=== PATIENT | female | born 1970 | race Caucasian/White ===

== ENCOUNTER 2016-09-11 21:00 | Inpatient (IN) | payer OTHER ==
[~2016-09-11] VITALS: Ht 157.5 cm; Wt 59.9 kg
[~2016-09-11 21:00] MED LIST: ADVAIR HFA120 INHAL1 IH; ADVIL200 M3 PO; ADVIL200 MG PO; AMBIEN10 MG PO; AMBIEN5 MG PO; ASCORBIC ACID500 M3 PO; ASMANEX TW200 MICROG; ASPIR-LOW81 MG PO; ATIVAN0.5 MG PO; AUGMENTIN875 MG PO; BACTRIM,SEPT1 TABLET PO; BENADRYL ALLERG25 MG PO; CIPRO500 MG PO; CIPROFLOXACIN500 M1 PO; COMBIVENT RESPIM4 GM IH; ENDOCET 5-3251 EACH PO; FENTANYL1 EAC1 TD; FLAGYL500 MG PO; FLEXERIL10 MG PO; HYCODAN SYRUP480 ML PO; HYDROCODON-ACE1 EAC7 PO; INDOCIN50 MG PO; LEVAQUIN500 MG PO; MIRALAX17 GM PO; MORPHINE SULFAT15 M1 PO; NICOTINE PATCH1 EAC2 TD; NO MEDS; NOHOMEMEDS; NORCO 7.5/321 TABLET PO; OMEPRAZOLE20 MG PO; ONE DAILY FOR1 EAC1 PO; OXYCODONE HCL5 MG PO; PERCOCET 5/31 TABLET PO; PHILLIPS'400 MG/5 M PO; PREDNISONE10 MG PO; PROZAC10 MG PO; TUMS500 MG PO; TYLENOL REGULA325 MG PO; VENTOLIN HFA18 GM IH; VENTOLIN17 GM; VICODIN,LORT1 TABLET PO; ZITHROMAX Z-PA250 MG PO
[2016-09-11 22:23] LABS: HEMATOCRIT 37.2 % (36.0-46.0); MCH 31.4 PG (29.0-34.0); MCHC 34.4 G/DL (30.0-36.0); MCV 91.4 FL (83-99); MEAN PLAT.VOLUME 8.2 uM^3 (9.5-12.4); PLATELET COUNT 322 K/uL (156-360); RBC DIS.WIDTH-CV 12.4 % (11.8-14.6); RBC DIS.WIDTH-SD 40.8 % (39-53); RED BLOOD COUNT 4.07 M/uL (3.80-5.20); WHITE BLOOD COUNT 9.5 K/uL (4.1-10.2)
[2016-09-11 22:33] LABS: CHLORIDE 106 mEq/L (99-109); POTASSIUM 3.7 mEq/L (3.7-5.4); SODIUM 140 mEq/L (136-147)
[2016-09-11 22:35] LABS: GLUCOSE 102 mg/dL (70-99)
[2016-09-11 22:36] LABS: ANION GAP 7 MEQ/L (2-14)
[2016-09-11 22:38] LABS: SERUM ETHYL ALCOHOL < 10 mg/dL
[2016-09-11 22:39] LABS: GFR ESTIMATE (CALCULATED) > 59 mL/min/
[2016-09-11 22:40] LABS: UREA NITROGEN (BUN) 9 mg/dL (9-23)
[2016-09-11 22:42] LABS: SALICYLATE < 5.0 MG/DL (15-30)
[2016-09-11 22:48] LABS: QUANTITATIVE HCG < 4.0 MIU/ML
[2016-09-12 05:47] LABS: ADD MIUA? YES; BILIRUBIN NEGATIVE; BLOOD MODERATE; COLOR YELLOW ((YELLOW)); GLUCOSE (STRIP) NEGATIVE; KETONES NEGATIVE; LEUKOCYTES NEGATIVE; NITRITE NEGATIVE; PROTEIN (STRIP) NEGATIVE; UROBILINOGEN 0.2 MG/DL (0.2-1.0)
[2016-09-12 05:52] LABS: BACTERIA NONE SEEN /HPF; EPITHELIAL CELLS RARE /HPF; MUCUS NONE SEEN /LPF; RED BLOOD CELLS 0-5 /HPF (0-5); UCUL ADDED? NO; WHITE BLOOD CELLS 0-5 /HPF (0-5)
[2016-09-12 05:55] LABS: AMPHETAMINE NEGATIVE (500 ng/mL); BARBITURATES NEGATIVE (200 ng/mL); BENZODIAZEPINES PRESUMPTIVE POSITIVE (150 ng/mL); COCAINE NEGATIVE (150 ng/mL); INTERNAL CONTROLS VALID? YES; METHADONE NEGATIVE (200 ng/mL); METHAMPHETAMINE NEGATIVE (500 ng/mL); OPIATES (MORPHINE) PRESUMPTIVE POSITIVE (100 ng/mL); OXYCODONE NEGATIVE (100 ng/mL); PHENCYCLIDINE NEGATIVE (25 ng/mL); PROPOXYPHENE NEGATIVE (300 ng/mL); THC CANNABINOIDS NEGATIVE (50 ng/mL); TRICYCLIC ANTIDEPRESSANTS NEGATIVE (300 ng/mL)
[2016-09-12 05:56] LABS: ADD MEDTOX COMMENT Y
[2016-09-12 06:56] LABS: BENZODIAZEPINES QUANT VALUE 0 NG/ML; BENZODIAZEPINES, URINE SCREEN Negative (200 ng/mL)
[2016-09-12] MEDS ORDERED: SYMBICORT60 INHALAT IH (07:49)
[2016-09-12] MEDS ORDERED: OMEPRAZOLE20 MG PO (07:49)
[2016-09-12] MEDS ORDERED: NORCO 5/3251 TABLET PO (07:50)
[2016-09-12 08:26] VITALS: BP 127/64
[2016-09-12 10:06] VITALS: BP 127/64
== END 2016-09-12 13:02 | disposition home or self-care (01) | DRG 885 ==
LOC: EME 21:00 → EDOF 09-12 03:34 → 1WEST 09-12 08:00
PROVIDERS: Emergency Medicine
DX: F33.9 Major depressive disorder, recurrent, unspecified (principal); T40.2X2A Poisoning by other opioids, intentional self-harm, initial encounter; F11.20 Opioid dependence, uncomplicated; F10.20 Alcohol dependence, uncomplicated
CPT/HCPCS: 80048; 81003; 84702; 84999; 85027; 90837; 99281; 99285; G0480; J2310

== ENCOUNTER 2017-04-13 07:11 | Inpatient (IN) | payer OTHER ==
[~2017-04-13] VITALS: Ht 157.5 cm; Wt 60.6 kg
[~2017-04-13 07:11] MED LIST changes: +NORCO 5/3251 TABLET PO; +SYMBICORT60 INHALAT IH
[2017-04-13 07:32] LABS: BASOPHIL COUNT 0.2 K/uL (0-0.1); EOSINOPHIL (%) 7.1 % (0-5); EOSINOPHIL COUNT 1.4 K/uL (0-0.3); HEMATOCRIT 47.6 % (36.0-46.0); IMMATURE GRANULOCYTE (%) 0.4 % (0.0-0.7); IMMATURE GRANULOCYTE COUNT 0.1 K/uL; INSTRUMENT ABS NEUTROPHIL CT 9.2 K/uL; LYMPHOCYTE COUNT 7.1 K/uL (1.0-2.8); MCH 32.6 PG (29.0-34.0); MCHC 33.4 G/DL (30.0-36.0); MCV 97.7 FL (83-99); MEAN PLAT.VOLUME 8.7 uM^3 (9.5-12.4); MONOCYTE (%) 6.9 % (3-12); MONOCYTE COUNT 1.3 K/uL (0-0.8); NEUTROPHIL COUNT 9.2 K/uL (1.8-6.4); PLATELET COUNT 450 K/uL (156-360); RBC DIS.WIDTH-CV 11.7 % (11.8-14.6); RBC DIS.WIDTH-SD 42.3 % (39-53); RED BLOOD COUNT 4.87 M/uL (3.80-5.20); WHITE BLOOD COUNT 19.2 K/uL (4.1-10.2)
[2017-04-13 08:11] LABS: ANION GAP 10 MEQ/L (2-14); CHLORIDE 100 MEQ/L (99-109); POTASSIUM 3.9 MEQ/L (3.7-5.4); SAMPLE HEMOLYSIS CHECK 0; SAMPLE ICTERIC CHECK 0; SAMPLE LIPEMIA CHECK 0; SODIUM 139 MEQ/L (136-147)
[2017-04-13 08:16] LABS: GFR ESTIMATE (CALCULATED) > 59 mL/min/; GLUCOSE 149 mg/dL (70-99); UREA NITROGEN (BUN) 12 mg/dL (9-23)
[2017-04-13 08:26] LABS: BASE EXCESS 0.1 mEq/L (-3 to +3); BICARBONATE 29.2 mEq/L (22-26); CARBOXY HGB 3.7 % (0-5); PCO2 65 mm Hg (35-45); PO2 51 mm Hg (80-100)
[2017-04-13 08:27] LABS: COMMENTS - BLOOD GASES A+C+; O2 FLOW 3 L/MIN; SITE LR; pH 7.26 (7.35-7.45)
[2017-04-13 08:29] LABS: DEVICE NC; TOTAL RESP RATE 32 resp/min
[2017-04-13 09:58] LABS: BASE EXCESS 1.5 mEq/L (-3 to +3); BICARBONATE 27.7 mEq/L (22-26); CARBOXY HGB 2.6 % (0-5); METHEMOGLOBIN 1.1 % (0-1.5)
[2017-04-13 10:00] LABS: COMMENTS - BLOOD GASES A+C+; DEVICE NC; O2 FLOW 3 L/MIN; PCO2 48 mm Hg (35-45); PO2 101 mm Hg (80-100); SITE LR; TOTAL RESP RATE 24 resp/min; pH 7.37 (7.35-7.45)
[2017-04-13] MEDS ORDERED: ROXICODONE5 MG PO (14:50)
[2017-04-13] MEDS ORDERED: ATIVAN0.5 MG PO (14:51)
[2017-04-13] MEDS ORDERED: AMBIEN10 MG PO (14:51)
[2017-04-13] MEDS ORDERED: CYCLOBENZAPRINE5 MG PO (14:51)
[2017-04-13] MEDS ORDERED: LO-DOSE ASPIRIN81 M1 PO (14:52)
[2017-04-13 15:56] VITALS: BP 117/59
[2017-04-13 19:37] VITALS: BP 120/62
[2017-04-13 22:59] VITALS: BP 118/73
[2017-04-14 03:24] VITALS: BP 143/82
[2017-04-14 07:30] VITALS: BP 122/57
[2017-04-14 12:00] VITALS: BP 115/62
[2017-04-14 16:00] VITALS: BP 108/58
[2017-04-14] MEDS ORDERED: PREDNISONE10 MG PO (18:19)
[2017-04-14] MEDS ORDERED: CEFDINIR300 MG PO (18:19)
[2017-04-14] MEDS ORDERED: VENTOLIN HFA18 GM IH (18:20)
[2017-04-14 19:32] VITALS: BP 137/87
== END 2017-04-14 20:36 | disposition home or self-care (01) | DRG 192 ==
LOC: EME → EDBD 07:11 → EME 07:11 → EDOF 13:04 → 4EAST 13:04 → ENRESERV 13:32 → 4EAST 15:25
PROVIDERS: Emergency Medicine
PROC: 5A09358 Assistance with Respiratory Ventilation, Less than 24 Consecutive Hours, Intermittent Positive Airway Pressure (ICD-10-PCS; principal; 2017-04-13)
DX: J44.1 Chronic obstructive pulmonary disease with (acute) exacerbation (principal); J44.0 Chronic obstructive pulmonary disease with (acute) lower respiratory infection; J20.9 Acute bronchitis, unspecified; G89.4 Chronic pain syndrome; G89.18 Other acute postprocedural pain; F41.9 Anxiety disorder, unspecified; G47.00 Insomnia, unspecified; M19.90 Unspecified osteoarthritis, unspecified site; K21.9 Gastro-esophageal reflux disease without esophagitis; F32.9 Major depressive disorder, single episode, unspecified; Z98.890 Other specified postprocedural states; F17.210 Nicotine dependence, cigarettes, uncomplicated; Z90.721 Acquired absence of ovaries, unilateral; Z90.710 Acquired absence of both cervix and uterus; Z82.5 Family history of asthma and other chronic lower respiratory diseases; Z82.49 Family history of ischemic heart disease and other diseases of the circulatory system; Z80.49 Family history of malignant neoplasm of other genital organs
CPT/HCPCS: 36600; 71010; 71275; 80048; 82803; 85025; 85379; 87040; 90686; 94002; 94640; 94640 76; 94644; 94760; 94799; 99202; 99281; 99285; J0456; J0696; J1100; J2060; J3475; J7050; J7644

== ENCOUNTER 2017-04-30 02:37 | Inpatient (IN) | payer OTHER ==
[~2017-04-30] VITALS: Ht 157.5 cm; Wt 52.9 kg
[~2017-04-30 02:37] MED LIST changes: +CEFDINIR300 MG PO; +CYCLOBENZAPRINE5 MG PO; +LO-DOSE ASPIRIN81 M1 PO; +ROXICODONE5 MG PO
[2017-04-30 03:45] LABS: CARBON DIOXIDE (BICARBONATE) 30.6 MEQ/L (20-31)
[2017-04-30 03:46] LABS: HEMATOCRIT 42.3 % (36.0-46.0); MCH 32.7 PG (29.0-34.0); MCV 96.1 FL (83-99); MEAN PLAT.VOLUME 8.4 uM^3 (9.5-12.4); PLATELET COUNT 510 K/uL (156-360); RBC DIS.WIDTH-SD 42.9 % (39-53); WHITE BLOOD COUNT 23.4 K/uL (4.1-10.2)
[2017-04-30 03:54] LABS: CHLORIDE 105 mEq/L (99-109); POTASSIUM 3.6 mEq/L (3.7-5.4); SODIUM 140 mEq/L (136-147)
[2017-04-30 03:55] LABS: GLUCOSE 132 mg/dL (70-99)
[2017-04-30 03:57] LABS: ANION GAP 10 MEQ/L (2-14)
[2017-04-30 03:59] LABS: GFR ESTIMATE (CALCULATED) > 59 mL/min/
[2017-04-30 04:00] LABS: UREA NITROGEN (BUN) 8 mg/dL (9-23)
[2017-04-30 05:45] VITALS: BP 135/63
[2017-04-30 07:45] VITALS: BP 108/63
[2017-04-30 11:35] VITALS: BP 112/61
[2017-04-30 15:42] VITALS: BP 112/64
[2017-05-01 00:12] VITALS: BP 107/54
[2017-05-01 07:52] VITALS: BP 123/68
[2017-05-01] MEDS ORDERED: PREDNISONE10 MG PO (13:35)
[2017-05-01] MEDS ORDERED: SPIRIVA RESPIMAT4 GM IH (13:35)
[2017-05-01] MEDS ORDERED: AMOX TR-K CLV1 EAC4 PO (13:35)
[2017-05-01] MEDS ORDERED: AZITHROMYCIN500 M1 PO (13:35)
[2017-05-01] MEDS ORDERED: SYMBICORT60 INHALAT IH (13:35)
== END 2017-05-01 14:51 | disposition home or self-care (01) | DRG 190 ==
LOC: EME 02:37 → 3EAST 04:15 → EDOF 04:15 → ENRESERV 04:37 → 3EAST 05:24
PROVIDERS: Emergency Medicine
DX: J44.0 Chronic obstructive pulmonary disease with (acute) lower respiratory infection (principal); J18.9 Pneumonia, unspecified organism; F33.9 Major depressive disorder, recurrent, unspecified; J20.9 Acute bronchitis, unspecified; J44.1 Chronic obstructive pulmonary disease with (acute) exacerbation; R09.02 Hypoxemia; F17.210 Nicotine dependence, cigarettes, uncomplicated; G89.4 Chronic pain syndrome; Z88.5 Allergy status to narcotic agent; Z88.6 Allergy status to analgesic agent; Z23 Encounter for immunization
CPT/HCPCS: 71010; 80048; 82803; 83605; 85027; 87040; 90686; 93005; 94640; 94640 76; 94644; 94799; 99281; 99285; J0456; J0696; J1650; J2930; J3475; J7050; J7512